=== PATIENT | female | born 1990 | race Caucasian/White ===

== ENCOUNTER 2019-01-01 08:36 | Emergency (ER) | payer BC ==
[2019-01-01 09:29] LABS: HEMATOCRIT 40.6 % (37.0-47.0); HEMOGLOBIN 13.3 g/dl (12.0-16.0); IMMATURE GRANULOCYTES 0.2 % (0.0-5.0); MEAN CORPUSCULAR HGB 30.8 pG CALC (26.0-32.0); MEAN CORPUSCULAR HGB CONC 32.8 g/L CALC (32.0-36.0); NEUT# 3.71 thou/uL (2.00-7.15); RED BLOOD COUNT 4.32 mill/uL (4.20-5.60); RED CELL DISTRI WIDTH 12.4 % (11.5-15.5)
[2019-01-01] MEDS ORDERED: SERTRALINE HCL50 MG PO (09:30)
[2019-01-01] MEDS ORDERED: LEVOTHYROXIN25 MC1 PO (09:30)
[2019-01-01 09:54] LABS: ALBUMIN 4.3 g/dL (3.2-5.0); ALKALINE PHOSPHATASE 82 u/l (38-126); ANION GAP 15 (6-22 (CALC)); BILIRUBIN, TOTAL 0.4 mg/dL (0.0-1.4); BUN 12 mg/dL (7-17); BUN/CREATININE RATIO 18 (12-20 (CALC)); CARBON DIOXIDE 19 mmol/l (22-30); CHLORIDE 111 mmol/l (95-108); CREATININE 0.7 mg/dL (0.5-1.0); GFR > 60 ML/MIN (>=60 (CALC)); GFR FOR AFR.AMER. > 60 ML/MIN (>=60 (CALC)); LIPASE 82 u/l (23-300); POTASSIUM 3.5 mmol/l (3.5-5.1); SGOT/AST 26 u/l (14-36); SODIUM 141 mmol/l (137-146); TOTAL PROTEIN 7.3 g/dL (6.3-8.2)
[2019-01-01 11:21] LABS: URINE BILIRUBIN - DIPSTICK NEGATIVE (NEGATIVE); URINE BLOOD DIPSTICK NEGATIVE (NEGATIVE); URINE COLOR YELLOW; URINE GLUCOSE - DIPSTICK NEGATIVE (NEGATIVE); URINE KETONE NEGATIVE (NEGATIVE); URINE LEUK ESTERASE NEGATIVE (NEGATIVE); URINE NITRITE - DIPSTICK NEGATIVE (Negative); URINE PROTEIN - DIPSTICK NEGATIVE (NEG-TRACE); URINE SPECIFIC GRAVITY <=1.005; URINE UROBILINOGEN - DIPSTICK 0.2 E.U./dL (0.2)
[2019-01-01] MEDS ORDERED: ONDANSETRON4 MG PO (11:39)
[2019-01-01 12:00] VITALS: BP 102/57
== END 2019-01-01 12:00 | disposition home or self-care (01) | DRG 392 ==
LOC: ED 08:36
PROVIDERS: Family Medicine
DX: R19.7 Diarrhea, unspecified (principal)
CPT/HCPCS: Q9967

== ENCOUNTER 2021-01-26 05:49 | Observation (INO) | payer BC ==
[~2021-01-26] VITALS: Ht 162.6 cm; Wt 74.0 kg
[~2021-01-26 05:49] MED LIST: LEVOTHYROXIN25 MC1 PO; ONDANSETRON4 MG PO; SERTRALINE HCL50 MG PO
[2021-01-26 06:47] LABS: HEMATOCRIT 42.7 % (37.0-47.0); HEMOGLOBIN 13.9 g/dl (12.0-16.0); IMMATURE GRANULOCYTES 0.4 % (0.0-5.0); MEAN CELL VOLUME 94.9 fL CALC (80.0-100.0); MEAN CORPUSCULAR HGB 30.9 pG CALC (26.0-32.0); MEAN CORPUSCULAR HGB CONC 32.6 g/dL CAL (32.0-36.0); NEUT# 9.49 thou/uL (2.00-7.15); RED BLOOD COUNT 4.5 mill/uL (4.20-5.60); RED CELL DISTRI WIDTH 12.6 % (11.5-15.5)
[2021-01-26 06:58] LABS: ALBUMIN 4.5 g/dL (3.2-5.0); ALKALINE PHOSPHATASE 78 u/l (38-126); AMYLASE 51 u/l (30-110); ANION GAP 14 (6-22 (CALC)); BILIRUBIN, TOTAL 0.5 mg/dL (0.0-1.4); BUN 14 mg/dL (7-17); BUN/CREATININE RATIO 24 (12-20 (CALC)); CHLORIDE 103 mmol/l (95-108); CREATININE 0.6 mg/dL (0.5-1.0); GFR > 60 ML/MIN (>=60 (CALC)); GFR FOR AFR.AMER. > 60 ML/MIN (>=60 (CALC)); LIPASE 87 u/l (23-300); POTASSIUM 3.8 mmol/l (3.5-5.1); SGOT/AST 20 u/l (14-36); SODIUM 138 mmol/l (137-146); TOTAL PROTEIN 7.4 g/dL (6.3-8.2)
[2021-01-26 07:02] LABS: CARBON DIOXIDE 25 mmol/l (22-30)
[2021-01-26 08:11] LABS: URINE BILIRUBIN - DIPSTICK NEGATIVE (NEGATIVE); URINE BLOOD DIPSTICK NEGATIVE (NEGATIVE); URINE COLOR YELLOW; URINE GLUCOSE - DIPSTICK NEGATIVE (NEGATIVE); URINE KETONE NEGATIVE (NEGATIVE); URINE LEUK ESTERASE NEGATIVE (NEGATIVE); URINE PROTEIN - DIPSTICK NEGATIVE (NEG-TRACE); URINE SPECIFIC GRAVITY >=1.030; URINE UROBILINOGEN - DIPSTICK 0.2 E.U./dL (0.2)
[2021-01-26 08:15] LABS: URINE NITRITE - DIPSTICK NEGATIVE (Negative)
[2021-01-26] MEDS ORDERED: ZOFRAN4 MG/TAB PO (09:58)
[2021-01-26 16:50] VITALS: BP 109/66
[2021-01-26 19:00] VITALS: BP 112/76
[2021-01-27 04:00] VITALS: BP 122/64
[2021-01-27 06:38] LABS: ANION GAP 10 (6-22 (CALC)); BUN 5 mg/dL (7-17); BUN/CREATININE RATIO 12 (12-20 (CALC)); CARBON DIOXIDE 22 mmol/l (22-30); CHLORIDE 108 mmol/l (95-108); CREATININE 0.5 mg/dL (0.5-1.0); GFR > 60 ML/MIN (>=60 (CALC)); GFR FOR AFR.AMER. > 60 ML/MIN (>=60 (CALC)); MAGNESIUM 1.7 mg/dL (1.6-2.3); POTASSIUM 3.6 mmol/l (3.5-5.1); SODIUM 136 mmol/l (137-146)
[2021-01-27 06:49] LABS: MEAN CELL VOLUME 97.5 fL CALC (80.0-100.0); MEAN CORPUSCULAR HGB 31.2 pG CALC (26.0-32.0); RED BLOOD COUNT 3.56 mill/uL (4.20-5.60); RED CELL DISTRI WIDTH 12.7 % (11.5-15.5)
[2021-01-27 06:56] LABS: HEMATOCRIT 34.7 % (37.0-47.0); HEMOGLOBIN 11.1 g/dl (12.0-16.0)
[2021-01-27 08:00] VITALS: BP 104/68
[2021-01-27] MEDS ORDERED: PROTONIX40 M2 PO (12:15)
[2021-01-27] MEDS ORDERED: ZOFRAN4 MG/TAB PO (12:15)
== END 2021-01-27 13:00 | disposition home or self-care (01) | DRG 389 ==
LOC: ED 05:49 → ED-I 13:00 → ED 13:31 → MS2 13:32
PROVIDERS: Emergency Medicine; ADMIT Hospitalist; ATTEND Hospitalist
DX: K56.7 Ileus, unspecified (principal); C81.90 Hodgkin lymphoma, unspecified, unspecified site; E86.0 Dehydration; K91.5 Postcholecystectomy syndrome; Y83.6 Removal of other organ (partial) (total) as the cause of abnormal reaction of the patient, or of later complication, without mention of misadventure at the time of the procedure; Z87.442 Personal history of urinary calculi; Z20.822 Contact with and (suspected) exposure to COVID-19; Z86.16 Personal history of COVID-19
CPT/HCPCS: G0378; Q9967; S0164

== ENCOUNTER 2023-11-27 18:52 | Emergency (ER) | payer SELFPAY ==
[~2023-11-27] VITALS: Ht 162.6 cm; Wt 68.0 kg
[2023-11-27] VITALS (9 sets, daily range): BP systolic 117–135; BP diastolic 73–87
[~2023-11-27 18:52] MED LIST changes: +PROTONIX40 M2 PO; +ZOFRAN4 MG/TAB PO
[2023-11-27] MEDS ORDERED: LORazepam 1 MG/TAB PO ONE (19:15)
[2023-11-27] MEDS ORDERED: KETOROLAC TROMETHAMINE 30 MG/ML SDV IV ONE (19:15)
[2023-11-27] MEDS ORDERED: ACETAMINOPHEN 500 MG TAB PO ONE (19:15)
[2023-11-27] MEDS ORDERED: ASPIRIN 81 MG/TAB PO ONE (19:15)
[2023-11-27 19:25] LABS: BASO% 0.1 % (0-3); EOS% 0.7 % (0-8); HEMOGLOBIN 14.2 g/dl (12.0-16.0); LYMPH% 31.9 % (15-41); MEAN CELL VOLUME 96.3 fL CALC (80.0-100.0); MEAN CORPUSCULAR HGB 32.6 pG CALC (26.0-32.0); MEAN CORPUSCULAR HGB CONC 33.8 g/dL CAL (32.0-36.0); MONO% 8.5 % (2-13); NEUT# 4.38 thou/uL (2.00-7.15); NEUT% 58.8 % (42-76); RED BLOOD COUNT 4.36 mill/uL (4.20-5.60)
[2023-11-27] MEDS ORDERED: OZEMPIC 8 MG/3M1 INJ (19:29)
[2023-11-27] MEDS ORDERED: PAROXETINE10 MG PO (19:33)
[2023-11-27 19:41] LABS: D-DIMER 0.26 mg/L (0.19-0.60)
[2023-11-27 19:42] LABS: ALBUMIN 4.9 g/dL (3.2-5.0); ALKALINE PHOSPHATASE 96 u/l (38-126); ANION GAP 12 (6-22 (CALC)); BILIRUBIN, TOTAL 0.6 mg/dL (0.02-1.3); CARBON DIOXIDE 23 mmol/l (22-30); CHLORIDE 107 mmol/l (95-108); POTASSIUM 3.8 mmol/l (3.5-5.1); SODIUM 138 mmol/l (137-146); TOTAL PROTEIN 7.9 g/dL (6.3-8.2)
[2023-11-27 19:45] LABS: ACT PARTIAL THROMBO TIME 26.3 SECONDS (20.0-32.5); PROTHROMBIN TIME 9.9 SECONDS (9.0-12.5)
[2023-11-27 19:47] LABS: BUN 14 mg/dL (7-17); BUN/CREATININE RATIO 22 (12-20 (CALC)); CREATININE 0.6 mg/dL (0.5-1.0); ESTIMATED GFR 123 ML/MIN (>=90 (CALC)); SGOT/AST 44 u/l (14-36)
[2023-11-27] MEDS ORDERED: TORADOL PO (20:41)
[2023-11-27] MEDS ORDERED: VISTARIL25 MG PO (20:41)
== END 2023-11-27 21:10 | disposition home or self-care (01) | DRG 313 ==
LOC: ED 18:52
PROVIDERS: Family Medicine
DX: R07.89 Other chest pain (principal); F41.9 Anxiety disorder, unspecified; C81.90 Hodgkin lymphoma, unspecified, unspecified site; Z86.16 Personal history of COVID-19; Z87.442 Personal history of urinary calculi

== ENCOUNTER 2024-06-18 07:02 | Emergency (ER) | payer SELFPAY ==
[2024-06-18] VITALS (14 sets, daily range): BP systolic 98–139; BP diastolic 56–97
[~2024-06-18] VITALS: Ht 162.6 cm; Wt 68.0 kg
[~2024-06-18 07:02] MED LIST changes: +OZEMPIC 8 MG/3M1 INJ; +PAROXETINE10 MG PO; +TORADOL PO; +VISTARIL25 MG PO
[2024-06-18] MEDS ORDERED: ONDANSETRON HCl 4 MG/2 ML SDV IV ONE (07:15)
[2024-06-18] MEDS ORDERED: SODIUM CHLORIDE 0.9% 1,000 ML IV ONE (07:15)
[2024-06-18] MEDS ORDERED: KETOROLAC TROMETHAMINE 30 MG/ML SDV IV ONE (07:20)
[2024-06-18] MEDS ORDERED: MORPHINE SULFATE 4 MG/ML VIAL IV ONE (08:25)
[2024-06-18 08:40] LABS: BASO% 0.2 % (0-3); EOS% 0.2 % (0-8); HEMATOCRIT 37.5 % (37.0-47.0); LYMPH% 2.5 % (15-41); MEAN CELL VOLUME 99.5 fL CALC (80.0-100.0); MEAN CORPUSCULAR HGB 32.4 pG CALC (26.0-32.0); MEAN CORPUSCULAR HGB CONC 32.5 g/dL CAL (32.0-36.0); MONO% 5.3 % (2-13); NEUT# 5.05 thou/uL (2.00-7.15); NEUT% 91.8 % (42-76); RED BLOOD COUNT 3.77 mill/uL (4.20-5.60); RED CELL DISTRI WIDTH 11.7 % (11.5-15.5)
[2024-06-18 08:41] LABS: HEMOGLOBIN 12.2 g/dl (12.0-16.0)
[2024-06-18 08:56] LABS: BILIRUBIN, TOTAL 0.4 mg/dL (0.02-1.3); CREATININE 0.6 mg/dL (0.5-1.0); POTASSIUM 3.9 mmol/l (3.5-5.1)
[2024-06-18 08:58] LABS: ALBUMIN 3.9 g/dL (3.2-5.0); TOTAL PROTEIN 6.2 g/dL (6.3-8.2)
== END 2024-06-18 10:25 | disposition home or self-care (01) | DRG 103 ==
LOC: ED 07:02
PROVIDERS: Family Medicine
DX: R51.9 Headache, unspecified (principal); C81.90 Hodgkin lymphoma, unspecified, unspecified site; Z86.16 Personal history of COVID-19; Z20.822 Contact with and (suspected) exposure to COVID-19
CPT/HCPCS: J1100; J2405